=== PATIENT | male | born 1970 | race Caucasian/White ===

== ENCOUNTER 2016-11-26 13:45 | Emergency (ER) | payer BC, MEDICAID ==
[2016-11-26] MEDS ORDERED: Labetalol 5 MG/ML 5 ML Syringe IVPUSH ONE (14:01)
[2016-11-26] MEDS ORDERED: Labetalol 5 MG/ML 5 ML Syringe ONE (14:02)
--- NOTE | 2016-11-26 14:08 | EDM.PDOC ---
ED HPI NEURO - General Chief Complaint: Neuro Symptoms/Deficits Stated Complaint: AMBULANCE Time Seen by Provider: 11/26/16 13:47 Source of Information: Reports: Patient History Limitations: Reports: No limitations - History of Present Illness INITIAL COMMENTS - FREE TEXT/NARRATIVE: History of present illness: []patient was in his truck when he started feeling funny and having right-sided weakness and facial droop. he was driving and realizedin his right foot was working so he pulled over called an ambulance the EMS stated on arrival he presented with facial droop and left-sided weakness. patient arrived approximately one hour after symptoms Review of systems: As per history of present illness and below otherwise all systems reviewed and negative. Past medical history: As per history of present illness and as reviewed below otherwise noncontributory. Surgical history: As per history of present illness and as reviewed below otherwise noncontributory. Social history: No reported history of drug or alcohol abuse. Family history: As per history of present illness and as reviewed below otherwise noncontributory. Physical exam: General: Well developed, well nourished in NAD HEENT: Atraumatic, normocephalic, pupils reactive, negative for conjunctival pallor or scleral icterus, mucous membranes moist, throat clear, neck supple, nontender, trachea midline. Lungs: Clear to auscultation, breath sounds equal bilaterally, chest nontender. Heart: S1S2, regular, negative for clicks, rubs, or JVD. Abdomen: Soft, nondistended, nontender. Negative for masses or hepatosplenomegaly. Negative for costovertebral tenderness. Pelvis: Stable nontender. Genitourinary: Deferred. Rectal: Deferred. Extremities: Atraumatic, negative for cords or calf pain. Neurovascular unremarkable. Neuro:Awake, alert, oriented. initially cranial nerves intact , Cerebellum unremarkable. Motor and sensory unremarkable throughout. Exam nonfocal. Reexam after CT:patient returned with right-sided facial droop with weakness and clumsiness of the right hand and leg. this episode was also transient return to normal within 20 minutes. Diagnostics: []CT head negative Therapeutics: []patient is hypertensive and started on nicardipine drip after one dose of labetalol. Impression: []left CVA symptoms, right-sided weakness, uncontrolled hypertension. Dr. Sanchez evaluated the patient in the ED and recommended TPA not be given secondary to his symptoms resolved once again while she was examining him and his blood pressure remains in the 180s over 120s. This is before the nicardipine the drip wasstarted. Plan: []transfer to [facility] in the emergency room Definitive disposition and diagnosis as appropriate pending reevaluation and review of above. - Related Data Allergies/ADRs: Allergies Allergy/AdvReac Type Severity Reaction Status Date / Time No Known Allergies Allergy Verified 11/26/16 13:50 Past Medical History Cardiovascular History: Reports: Hypertension ED ROS GENERAL - Review of Systems Review Of Systems: See Below (see history of present illness) ED EXAM, NEURO - Physical Exam Exam: See Below (see history of present illness) Course - Vital Signs Last Recorded V/S: Last Vital Signs Temp 36.3 C 11/26/16 14:08 Pulse 81 11/26/16 14:08 Resp 18 11/26/16 14:08 BP 117/111 H 11/26/16 14:08 Pulse Ox 95 11/26/16 14:08 - Orders/Labs/Meds Orders: Active Orders 24 hr Category Date Time Status Alteplase [Activase] Med 11/26/16 14:30 Active 10 mg IVPUSH .BOLUS Alteplase [Activase] 60 mg Med 11/26/16 14:30 Active Premix Bag 1 bag IV .INFUSION niCARdipine/Normal Saline [Cardene 20 MG in NS 200 ML] Med 11/26/16 14:30 Active 20 mg Premix Bag 1 bag IV TITRATE Medication Orders Alteplase, Recombinant (Activase) 10 mg IVPUSH .BOLUS SUNITA Alteplase, Recombinant 60 mg/ (Premix) 0 mls @ 3 drops/min IV .INFUSION SUNITA Nicardipine HCl 20 mg/ Premix 200 mls @ 50 mls/hr IV TITRATE SUNITA Last Admin: 11/26/16 14:54 Dose: 50 mls/hr Labs: Laboratory Tests 11/26/16 11/26/16 11/26/16 Range/Units 13:48 13:48 13:48 WBC 5.52 (4.0-11.0) K/uL RBC 4.79 (4.50-5.90) M/uL Hgb 14.5 (13.0-17.0) g/dL Hct 41.9 (38.0-50.0) % MCV 87.5 (80.0-98.0) fL MCH 30.3 (27.0-32.0) pg MCHC 34.6 (31.0-37.0) g/dL RDW Std Deviation 41.2 (28.0-62.0) fl RDW Coeff of Svetlana 13 (11.0-15.0) % Plt Count 175 (150-400) K/uL MPV 10.10 (7.40-12.00) fL Neut % (Auto) 61.8 (48.0-80.0) % Lymph % (Auto) 27.4 (16.0-40.0) % Pitt % (Auto) 7.8 (0.0-15.0) % Eos % (Auto) 2.5 (0.0-7.0) % Baso % (Auto) 0.5 (0.0-1.5) % Neut # (Auto) 3.4 (1.4-5.7) K/uL Lymph # (Auto) 1.5 (0.6-2.4) K/uL Pitt # (Auto) 0.4 (0.0-0.8) K/uL Eos # (Auto) 0.1 (0.0-0.7) K/uL Baso # (Auto) 0.0 (0.0-0.1) K/uL Nucleated RBC % 0.0 /100WBC Nucleated RBCs # 0 K/uL INR 1.00 (0.86-1.11) APTT 27.1 (18.6-31.3) SEC Sodium 140 (136-146) mmol/L Potassium 3.6 (3.5-5.1) mmol/L Chloride 107 (98-110) mmol/L Carbon Dioxide 23 (21-31) mmol/L BUN 18 (6.0-23.0) mg/dL Creatinine 0.9 (0.6-1.5) mg/dL Est Cr Clr Drug Dosing 102.56 mL/min Estimated GFR (MDRD) > 60.0 ml/min Glucose 114 H (60-110) mg/dL Calcium 8.5 L (8.8-10.8) mg/dL Total Bilirubin 1.0 (0.1-1.5) mg/dL AST 25 (5-40) IU/L ALT 42 (8-54) IU/L Alkaline Phosphatase 68 (40-150) Troponin I (0.0-0.29) NG/ML Total Protein 6.8 (6.0-8.0) g/dL Albumin 4.2 (3.5-5.0) g/dL Globulin 2.6 (2.0-3.5) g/dL Albumin/Globulin Ratio 1.6 (1.3-2.8) 11/26/16 Range/Units 13:48 WBC (4.0-11.0) K/uL RBC (4.50-5.90) M/uL Hgb (13.0-17.0) g/dL Hct (38.0-50.0) % MCV (80.0-98.0) fL MCH (27.0-32.0) pg MCHC (31.0-37.0) g/dL RDW Std Deviation (28.0-62.0) fl RDW Coeff of Svetlana (11.0-15.0) % Plt Count (150-400) K/uL MPV (7.40-12.00) fL Neut % (Auto) (48.0-80.0) % Lymph % (Auto) (16.0-40.0) % Pitt % (Auto) (0.0-15.0) % Eos % (Auto) (0.0-7.0) % Baso % (Auto) (0.0-1.5) % Neut # (Auto) (1.4-5.7) K/uL Lymph # (Auto) (0.6-2.4) K/uL Pitt # (Auto) (0.0-0.8) K/uL Eos # (Auto) (0.0-0.7) K/uL Baso # (Auto) (0.0-0.1) K/uL Nucleated RBC % /100WBC Nucleated RBCs # K/uL INR (0.86-1.11) APTT (18.6-31.3) SEC Sodium (136-146) mmol/L Potassium (3.5-5.1) mmol/L Chloride (98-110) mmol/L Carbon Dioxide (21-31) mmol/L BUN (6.0-23.0) mg/dL Creatinine (0.6-1.5) mg/dL Est Cr Clr Drug Dosing mL/min Estimated GFR (MDRD) ml/min Glucose (60-110) mg/dL Calcium (8.8-10.8) mg/dL Total Bilirubin (0.1-1.5) mg/dL AST (5-40) IU/L ALT (8-54) IU/L Alkaline Phosphatase (40-150) Troponin I < 0.10 (0.0-0.29) NG/ML Total Protein (6.0-8.0) g/dL Albumin (3.5-5.0) g/dL Globulin (2.0-3.5) g/dL Albumin/Globulin Ratio (1.3-2.8) Meds: Medications Generic Name Dose Route Start Last Admin Trade Name Freq PRN Reason Stop Dose Admin Alteplase, Recombinant 10 mg 11/26/16 14:30 Activase IVPUSH .BOLUS SUNITA Alteplase, Recombinant 60 mg/ 0 mls @ 3 drops/min 11/26/16 14:30 Premix IV .INFUSION SUNITA Nicardipine HCl 20 mg/ Premix 200 mls @ 50 mls/hr 11/26/16 14:30 11/26/16 14: 54 IV 50 mls/hr TITRATE SUNITA Administration Discontinued Medications Generic Name Dose Route Start Last Admin Trade Name Freq PRN Reason Stop Dose Admin Alteplase, Recombinant Confirm 11/26/16 14:30 Activase Administered 11/26/16 14:31 Dose 100 mg .ROUTE .STK-MED ONE Aspirin 324 mg 11/26/16 14:14 11/26/16 14:18 Aspirin PO 11/26/16 14:15 324 mg ONETIME ONE Administration Labetalol HCl 20 mg 11/26/16 14:01 11/26/16 14:06 Normodyne IVPUSH 11/26/16 14:02 20 mg .BOLUS ONE Administration Protocol Labetalol HCl Confirm 11/26/16 14:02 Normodyne Administered 11/26/16 14:03 Dose 25 mg .ROUTE .STK-MED ONE Departure - Departure Time of Disposition: 15:16 Disposition: DC/Tfer to Acute Hospital 02 Condition: good Clinical Impression: Acute cerebrovascular accident, Uncontrolled hypertension Forms: ED Department Discharge - My Orders Last 24 Hours: My Active Orders 11/26/16 14:30 Alteplase [Activase] 10 mg IVPUSH .BOLUS Alteplase [Activase] 60 mg Premix Bag 1 bag IV .INFUSION niCARdipine/Normal Saline [Cardene 20 MG in NS 200 ML] 20 mg Premix Bag 1 bag IV TITRATE - Assessment/Plan Last 24 Hours: My Active Orders 11/26/16 14:30 Alteplase [Activase] 10 mg IVPUSH .BOLUS Alteplase [Activase] 60 mg Premix Bag 1 bag IV .INFUSION niCARdipine/Normal Saline [Cardene 20 MG in NS 200 ML] 20 mg Premix Bag 1 bag IV TITRATE
[2016-11-26] MEDS ORDERED: Aspirin 81 MG Tab.Chew PO ONE (14:14)
[2016-11-26 14:17] LABS: CHLORIDE,CL 107 mmol/L (98-110); SODIUM,NA 140 mmol/L (136-146)
--- NOTE | 2016-11-26 14:17 | CT ---
EXAMINATION: Non contrast CT head. Coronal and sagittal reformats. HISTORY: Stroke code FINDINGS: No evidence of intra or extra axial hemorrhage, mass, midline shift, hydrocephalus or edema. No hypoattenuation changes in the major vascular territories to suggest acute infarct. No abnormal intracranial calcifications are detected. No evidence of substantial vascular calcifica tions. Paranasal sinuses and mastoid air cells are well aerated without substantial findings. Pituitary fossa appears unremarkable. Calvarium is intact. No evidence of skull fracture. IMPRESSION: No acute intracranial findings. The above findings were called to the ER at 2:10 PM.
[2016-11-26] MEDS ORDERED: ALTEPLASE IV SCH (14:30)
[2016-11-26] MEDS ORDERED: niCARdipine/Normal Saline 20 MG in Premix Bag 1 BAG IV SCH (14:30)
--- NOTE | 2016-11-26 14:41 | CR ---
EXAMINATION: Portable chest radiograph. HISTORY: Shortness of breath. FINDINGS: The trachea is midline. The cardiomediastinal silhouette is within normal limits. No pulmonary infil trates, effusions or pneumothorax. Osseous structures appear unremarkable. IMPRESSION: No acute cardiopulmonary process.
--- NOTE | 2016-11-26 15:12 | EDM.PDOC ---
ED HPI GENERAL MEDICAL PROBLEM - General Time Seen by Provider: 11/26/16 15:00 - Related Data Allergies Allergy/AdvReac Type Severity Reaction Status Date / Time No Known Allergies Allergy Verified 11/26/16 13:50 Home Meds: Home Meds . [No Known Home Meds] 11/26/16 [History] Past Medical History Cardiovascular History: Reports: Hypertension Social & Family History - Family History Family Medical History: Noncontributory ED ROS GENERAL - Review of Systems Review Of Systems: ROS reveals no pertinent complaints other than HPI. ED EXAM, NEURO - Physical Exam Exam: See Below Comments: Constitutional: anxious appearing Psychiatric: Mood/Affect: normal/appropriate Neurological: Mental Status: General: Normal activity, good hygiene, appropriate appearance. Level of consciousness: Awake, alert. Orientation: Oriented to person, place, time and situation. Concentration/Attention Span: Normal. Comprehension/Praxis: Able to perform a three step command. Fund of Knowledge/memory: Adequate recent and remote recall. Language: Fluent and articulate without evidence of aphasia or dysarthria. Naming and repetition intact. Thought Content: Normal. Insight/Judgement: Normal. Cranial Nerves: Pupils equally round and reactive to light. Visual turner full to confrontation. Gaze conjugate, EOMI. Sensation intact and symmetric to light touch. Facial strength is full and symmetric. Palate elevates symmetrically. Normal shrug bilaterally. Tongue protrudes midline Motor: Normal tone in all groups. No drift. Power is 5/5 throughout proximal and distal muscles. Sensation: Sensation is intact to pinprick, vibratory sense and proprioception. Deep tendon reflexes: Normoactive throughout. Coordination: Finger to nose, heel to wilson and rapid alternating movements are intact. Gait: Normal casual gait. Negative romberg HEENT: Eyes: non icteric, Mouth: moist mucus membranes Cardiovascular: RRR, no carotid bruits Respiratory: clear lungs GI: non tender Musculoskeletal: non tender Course - Vital Signs Last Recorded V/S: Last Vital Signs Temp 36.3 C 11/26/16 14:08 Pulse 65 11/26/16 20:22 Resp 16 11/26/16 20:22 BP 163/112 H 11/26/16 20:22 Pulse Ox 97 11/26/16 20:22 - Orders/Labs/Meds Labs: Laboratory Tests 11/26/16 11/26/16 11/26/16 Range/Units 13:48 13:48 13:48 WBC 5.52 (4.0-11.0) K/uL RBC 4.79 (4.50-5.90) M/uL Hgb 14.5 (13.0-17.0) g/dL Hct 41.9 (38.0-50.0) % MCV 87.5 (80.0-98.0) fL MCH 30.3 (27.0-32.0) pg MCHC 34.6 (31.0-37.0) g/dL RDW Std Deviation 41.2 (28.0-62.0) fl RDW Coeff of Svetlana 13 (11.0-15.0) % Plt Count 175 (150-400) K/uL MPV 10.10 (7.40-12.00) fL Neut % (Auto) 61.8 (48.0-80.0) % Lymph % (Auto) 27.4 (16.0-40.0) % Henderson % (Auto) 7.8 (0.0-15.0) % Eos % (Auto) 2.5 (0.0-7.0) % Baso % (Auto) 0.5 (0.0-1.5) % Neut # (Auto) 3.4 (1.4-5.7) K/uL Lymph # (Auto) 1.5 (0.6-2.4) K/uL Henderson # (Auto) 0.4 (0.0-0.8) K/uL Eos # (Auto) 0.1 (0.0-0.7) K/uL Baso # (Auto) 0.0 (0.0-0.1) K/uL Nucleated RBC % 0.0 /100WBC Nucleated RBCs # 0 K/uL INR 1.00 (0.86-1.11) APTT 27.1 (18.6-31.3) SEC Sodium 140 (136-146) mmol/L Potassium 3.6 (3.5-5.1) mmol/L Chloride 107 (98-110) mmol/L Carbon Dioxide 23 (21-31) mmol/L BUN 18 (6.0-23.0) mg/dL Creatinine 0.9 (0.6-1.5) mg/dL Est Cr Clr Drug Dosing 102.56 mL/min Estimated GFR (MDRD) > 60.0 ml/min Glucose 114 H (60-110) mg/dL Calcium 8.5 L (8.8-10.8) mg/dL Total Bilirubin 1.0 (0.1-1.5) mg/dL AST 25 (5-40) IU/L ALT 42 (8-54) IU/L Alkaline Phosphatase 68 (40-150) Troponin I (0.0-0.29) NG/ML Total Protein 6.8 (6.0-8.0) g/dL Albumin 4.2 (3.5-5.0) g/dL Globulin 2.6 (2.0-3.5) g/dL Albumin/Globulin Ratio 1.6 (1.3-2.8) 11/26/16 Range/Units 13:48 WBC (4.0-11.0) K/uL RBC (4.50-5.90) M/uL Hgb (13.0-17.0) g/dL Hct (38.0-50.0) % MCV (80.0-98.0) fL MCH (27.0-32.0) pg MCHC (31.0-37.0) g/dL RDW Std Deviation (28.0-62.0) fl RDW Coeff of Svetlana (11.0-15.0) % Plt Count (150-400) K/uL MPV (7.40-12.00) fL Neut % (Auto) (48.0-80.0) % Lymph % (Auto) (16.0-40.0) % Henderson % (Auto) (0.0-15.0) % Eos % (Auto) (0.0-7.0) % Baso % (Auto) (0.0-1.5) % Neut # (Auto) (1.4-5.7) K/uL Lymph # (Auto) (0.6-2.4) K/uL Henderson # (Auto) (0.0-0.8) K/uL Eos # (Auto) (0.0-0.7) K/uL Baso # (Auto) (0.0-0.1) K/uL Nucleated RBC % /100WBC Nucleated RBCs # K/uL INR (0.86-1.11) APTT (18.6-31.3) SEC Sodium (136-146) mmol/L Potassium (3.5-5.1) mmol/L Chloride (98-110) mmol/L Carbon Dioxide (21-31) mmol/L BUN (6.0-23.0) mg/dL Creatinine (0.6-1.5) mg/dL Est Cr Clr Drug Dosing mL/min Estimated GFR (MDRD) ml/min Glucose (60-110) mg/dL Calcium (8.8-10.8) mg/dL Total Bilirubin (0.1-1.5) mg/dL AST (5-40) IU/L ALT (8-54) IU/L Alkaline Phosphatase (40-150) Troponin I < 0.10 (0.0-0.29) NG/ML Total Protein (6.0-8.0) g/dL Albumin (3.5-5.0) g/dL Globulin (2.0-3.5) g/dL Albumin/Globulin Ratio (1.3-2.8) Meds: Medications Discontinued Medications Generic Name Dose Route Start Last Admin Trade Name Freq PRN Reason Stop Dose Admin Alteplase, Recombinant 10 mg 11/26/16 14:30 Activase IVPUSH .BOLUS SUNITA Alteplase, Recombinant Confirm 11/26/16 14:30 11/26/16 20:07 Activase Administered 11/26/16 14:31 Not Given Dose 100 mg .ROUTE .STK-MED ONE Aspirin 324 mg 11/26/16 14:14 11/26/16 14:18 Aspirin PO 11/26/16 14:15 324 mg ONETIME ONE Administration Alteplase, Recombinant 60 mg/ 0 mls @ 3 drops/min 11/26/16 14:30 Premix IV .INFUSION SUNITA Nicardipine HCl 20 mg/ Premix 200 mls @ 50 mls/hr 11/26/16 14:30 11/26/16 14: 54 IV 50 mls/hr TITRATE SUNITA Administration Labetalol HCl 20 mg 11/26/16 14:01 11/26/16 14:06 Normodyne IVPUSH 11/26/16 14:02 20 mg .BOLUS ONE Administration Protocol Labetalol HCl Confirm 11/26/16 14:02 11/26/16 20:07 Normodyne Administered 11/26/16 14:03 Not Given Dose 25 mg .ROUTE .STK-MED ONE Departure - Departure Time of Disposition: 15:15 Disposition: DC/Tfer to Acute Hospital 02 Clinical Impression: Acute cerebrovascular accident, Uncontrolled hypertension - Discharge Information Referrals: PCP,None [Primary Care Provider] - Forms: ED Department Discharge - Problem List Review Problem List Initiated/Reviewed/Updated: Yes - Assessment/Plan Assessment:: 46 year old man with acute onset right face, arm, leg weakness that waxed and waned consistent with stuttering TIAs. NIHSS was 0 (14:35), so he is not a candidate for TPA. His blood pressure is also very high. I recommend close monitoring for this gentleman in an ICU setting. He could be a candidate for TPA if he has stroke symptoms that do not resolve. MRI brain, MRA head and neck, TTE, telemetry, ASA are indicated. Fasting lipids and Hgb A1c need to be checked. Given his young age, I would consider additional work up including ANCELMO, 30 day monitor, hypercoag work up if initial evaluation is unrevealing. . ED HPI NEURO - General Chief Complaint: Neuro Symptoms/Deficits Stated Complaint: AMBULANCE Time Seen by Provider: 11/26/16 14:25 - History of Present Illness INITIAL COMMENTS - FREE TEXT/NARRATIVE: This is a 46-year-old man with a history of hypertension presenting with right- sided weakness. Symptom onset was 12:40. Initially noticed lightheadedness was getting into his pickup but then realized that he had weakness in his right arm and leg. He had difficulty using the gas pedal. He called his noted that he was having trouble speaking. He had difficulty articulating, not difficulty with word finding. By the time he arrived in the emergency department , symptoms have resolved. When he was in the CT scan her at 1:30 PM, his symptoms recurred but then resolved again She denies any chest pain, shortness of breath, fevers, chills. double vision, vision loss. He endorsed a mild headache earlier today, which is typical of a sinus headache he has had since adolescence. No tobacco use. Denies any family history of stroke. - Related Data Allergies/ADRs: Allergies Allergy/AdvReac Type Severity Reaction Status Date / Time No Known Allergies Allergy Verified 11/26/16 13:50 Home Meds: Home Meds . [No Known Home Meds] 11/26/16 [History] Departure - Departure Time of Disposition: 15:12 Disposition: DC/Tfer to Acute Hospital 02 Clinical Impression: Acute cerebrovascular accident, Uncontrolled hypertension Referrals: PCP,None [Primary Care Provider] - Forms: ED Department Discharge
[2016-11-26 20:23] VITALS: BP 163/112
== END 2016-11-26 15:10 ==
LOC: MW.ED 13:45
DX: I63.9 Cerebral infarction, unspecified (principal); I10 Essential (primary) hypertension
CPT/HCPCS: 70450; 71010; 80053; 84484; 85025; 85610; 85730; 93005; 96365; 96375; 99285; A9270